=== PATIENT | male | born 1990 | race Hispanic/Latino ===

== ENCOUNTER 2018-01-06 05:59 | Day surgery (SDC) | payer BC ==
[2018-01-02 13:13] VITALS: BMI 27.9
[2018-01-06] MEDS ORDERED: Lactated Ringer's 1,000 ML IV ONE ×2 (06:47→13:45)
[2018-01-06 07:06] LABS: HEMOGLOBIN 14.5 g/dL (12.0-18.0); MEAN CELL VOLUME 90.2 fl (80.0-94.0); MEAN CORPUSCULAR HEMOGLOBIN 30.2 pg (27.0-31.0); MEAN CORPUSCULAR HGB CONC 33.5 g/dL (33.0-37.0); RBC 4.82 Mil/uL (4.40-5.90); RED CELL DISTRIBUTION WIDTH 12.4 % (11.5-14.5); WHITE BLOOD COUNT 5.7 K/uL (4.8-10.8)
[2018-01-06] MEDS ORDERED: Lidocaine 1% Inj (20ml) ONE (07:44)
[2018-01-06] MEDS ORDERED: MethylPREDNISolone Depo 40 mg/ml Inj ONE (07:44)
[2018-01-06] MEDS ORDERED: EPINEPHrine 1 mg/ml (1:1000) Inj ONE ×6 (07:44→11:23)
[2018-01-06] MEDS ORDERED: Bacitracin Ointment 30 GM TUBE ONE (07:45)
[2018-01-06] MEDS ORDERED: Bupivacaine 0.5% Inj(30mL) ONE (07:45)
[2018-01-06] MEDS ORDERED: Rocuronium 10 mg/ml (5 ml) ONE (08:58)
[2018-01-06] MEDS ORDERED: Propofol 10 mg/ml Inj (20 ML) ONE (08:58)
[2018-01-06] MEDS ORDERED: Midazolam 2 MG/2 ML VIAL ONE (08:58)
[2018-01-06] MEDS ORDERED: Succinylcholine 200 mg/10 ml Inj IV ONE (08:58)
[2018-01-06] MEDS ORDERED: Lidocaine 1% 5ml Abboject IV ONE (08:59)
[2018-01-06] MEDS ORDERED: Ropivacaine 0.5% 30ML IV ONE (09:05)
[2018-01-06] MEDS ORDERED: EPINEPHrine 1 mg/ml (1:1000) Inj IV ONE (10:45)
[2018-01-06] MEDS ORDERED: Lidocaine 1% Inj (20ml) IJ ONE (10:45)
--- NOTE | 2018-01-06 12:46 | PCM.ANESB3 ---
Femoral Nerve Block - Femoral Nerve Block Date of Procedure: 01/06/18 Anesthesiologist: Luke Pre-Procedure Diagnosis: Left ACL tear Post-Procedure Diagnosis: Same Procedure Performed: Femoral Nerve Block Left - Procedure Femoral Nerve Block: The procedure was explained to the patient that it is for the post-operative pain management. Consent was obtained after a thorough discussion with the patient regarding the benefits and possible complications of local anesthetic block of the femoral nerve at the inguinal crease area. The patient was brought to the operating room and standard monitors were applied. Time-out was held with the circulating nurse to confirm the correct surgery and the appropriate block. After applying oxygen by nasal cannula and administering IV Sedation, patient was placed in supine position with fully extended lower extremities and the ___left groin exposed. The femoral artery was then carefully palpated. The ultrasound transducer was then applied to this area in the transverse plane and the femoral nerve was visualized lateral to the femoral artery and underneath the fascia iliaca. After thorough identification, the inguinal crease area was prepped with Betadine solution three times and 1 % Lidocaine was injected subcutaneously for topical anesthesia. At this point, a #22 gauge Stimuplex 2-inch needle was inserted immediately lateral to the femoral artery pulse at the inguinal crease and advanced perpendicularly. The needle was inserted to the ultrasound transducer in-plane towards the femoral nerve in a jvvjyyl-oc-frqguy direction. Needle advancement was performed carefully under direct ultrasound visualization. Nerve stimulator was used and twitch of the quadriceps muscle was obtained at current of __0.4___ MA. After negative aspiration, ___20__cc of __.5___% ____ropivacaine ____was injected. Under ultrasound guidance the local anesthetics were observed spreading below fascia iliaca and around the femoral nerve. The needle was removed intact and sterile dressing was applied. The patient had stable vital signs, was conscious and in no apparent distress. The patient tolerated the femoral nerve block well with stable vital signs and was prepared for subsequent surgery.
--- NOTE | 2018-01-06 12:48 | PCM.ANESB2 ---
Popliteal Nerve Block - Popliteal Nerve Block Date of Procedure: 01/06/18 Anesthesiologist: Luke Pre-Procedure Diagnosis: Left ACL tear Post-Procedure Diagnosis: Same Procedure Performed: Popliteal Nerve Block Left - Procedure Popliteal Nerve Block: This procedure was explained to the patient that it is for post-operative pain management. Consent was obtained after a thorough discussion with the patient regarding the benefits and possible complications of local anesthetic block of the sciatic nerve at the popliteal level. The patient was brought to the operating room and standard monitors are applied. Time-out was held with the circulating nurse to confirm the correct surgery and the appropriate block. After applying oxygen by nasal cannula and administering IV Sedation, patient's operative leg was gently raised and supported and the groove in between the biceps femoris and vastus lateralis muscles was carefully palpated. The skin approximately 8cm above the popliteal crease was then marked. The ultrasound transducer was then applied to the posterior thigh approximately 8cm above the popliteal crease in the transverse plane and the sciatic nerve before its division was visualized lateral to the popliteal artery and in between the bicep femoris and semimembranosus/semitendinosus muscles. After identification, the lateral portion of the thigh was prepped with Betadine solution three times and Lidocaine 1% was injected subcutaneously for topical anesthesia. At this point, a # 21 gauge Stimuplex insulated 4 inch needle was inserted into pre-marked area and advanced in a perpendicular direction. The needle was inserted above the ultrasound transducer in-plane towards the sciatic nerve in a rqpvqbr-mi-wacfye direction. Needle advancement was performed carefully under direct ultrasound visualization. Nerve stimulator was used and dorsiflexion of the __left___ foot was elicited at a current of __0.4___ MA. After repeated negative aspiration, __10___cc of __.5___ % ____ropivacaine was injected. Under ultrasound guidance the local anesthetics were observed surrounding sciatic nerve . The needle was removed intact and sterile dressing was applied. The patient tolerated the popliteal nerve block well with stable vital signs and was subsequently prepared for the surgery.
[2018-01-06] MEDS ORDERED: Bacitracin OINT 15GM TOP ONE (13:35)
[2018-01-06] MEDS ORDERED: HYDROmorphone 0.5 mg/0.5 ml ISec IVP PRN (13:48)
[2018-01-06] MEDS ORDERED: Lactated Ringer's 1,000 ML IV SCH (14:00)
--- NOTE | 2018-01-06 15:10 | PCM.SURG1 ---
Surgeon's Initial Post Op Note - Surgeon's Notes Surgeon: [employer] Plant Engineer: LIDYA Mendoza Type of Anesthesia: General Endo (-), Spinal, Block Regional Anesthesia Administered By: DR Butler/DR Horne Pre-Operative Diagnosis: post traumatic derangemewnt L Knee Operative Findings: Tear ACL- complete. High grade tear MCL. tear lateral meniscus. tricompartmental synovitis Post-Operative Diagnosis: as above Operation Performed: arthroscopic ACL recostruction with semitendonosis tendon. athroscopic MCL repair/reinforcemnt with internal brace technology. arthroscopic partial lateral meniscectomy. arthroscopic partial tricompartmental synovectomy. applx knee immobilizer. posiitoning of fluoro/ interpretation of video images Specimen/Specimens Removed: cartilage/synvoium/ligament Estimated Blood Loss: EBL {In ML}: 15 Blood Products Given: N/A Drains Used: No Drains Post-Op Condition: Good Date of Surgery/Procedure: 01/06/18 Time of Surgery/Procedure: 10:45 (time in room/anaestrhesdia induction time 9:40 )
[2018-01-06 16:02] VITALS: RESP 18; O2SAT 99
[2018-01-06 16:37] VITALS: BP 128/80; PULSE 84; TEMP 98.3
--- NOTE | 2018-01-06 16:50 | RAD ---
PROCEDURE: Left Knee Radiographs. HISTORY: Status post complex knee reconstruction COMPARISON: None. FINDINGS: BONES: No visible fractures. JOINTS: Normal. No osteoarthritis. JOINT EFFUSION: Air and fluid within the suprapatellar bursa. OTHER FINDINGS: None. IMPRESSION: Satisfactory postoperative status.
--- NOTE | 2018-01-07 11:16 | OP ---
PROCEDURE DATE: 01/06/2018 PREOPERATIVE DIAGNOSES: 1. Post-traumatic derangement of the left knee. 2. Complete tear of the anterior cruciate ligament. 3. High-grade partial tear, medial collateral ligament. 4. Tear, lateral meniscus. 5. Tricompartmental synovitis. POSTOPERATIVE DIAGNOSES: 1. Post-traumatic derangement of the left knee. 2. Complete tear of the anterior cruciate ligament. 3. High-grade partial tear, medial collateral ligament. 4. Tear, lateral meniscus. 5. Tricompartmental synovitis. OPERATION PERFORMED: 1. Arthroscopic ACL reconstruction with semitendinosus allograft tendon. 2. Arthroscopic MCL repair/reinforcement with internal brace technology. 3. Arthroscopic partial lateral meniscectomy. 4. Arthroscopic partial tricompartmental synovectomy. 5. Positioning of fluoroscope interpretation of video images. 6. Application of knee immobilizer. SURGEON: Robert Cueva MD DERMATOLOGY NURSE: Gabi Lopez, certified registered nursing first line supervisor. SPECIMENS REMOVED: Cartilage, synovium, and ligament. ESTIMATED BLOOD LOSS: 15-20 mL. BLOOD PRODUCTS GIVEN: None. DRAINS: No drains used. POSTOPERATIVE CONDITION: Good. TIME OF SURGERY: 10:45 incision time. Time in the room 9:40. 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 The patient sustained a basketball injury approximately a week to 10 days ago. The patient presented to my office, had a bloody aspirate and a positive MRI for ACL injury and MCL injury. Pros, cons, risks, and benefits of surgical approach were discussed. The possibility of mechanical failure, infection, thromboembolic disease, stiffness secondary or tertiary surgery was discussed. The patient can no longer withstand the discomfort, he is aware of the options, and wishes the arthroscopic reconstruction. OPERATIVE PROCEDURE: After having obtained informed consent in the above fashion, after having identified side, site, and procedure and critical pause/time-out after the satisfactory induction of the anesthetic, the patient identified as Alton Flowers underwent general endotracheal and regional block anesthesia by Dr. Butler and Dr. Horne. After having obtained informed consent, after having identified side, site, and procedure and a critical pause/time-out, after the satisfactory induction of the anesthetic, the left lower extremity was prepped and free draped in usual fashion for lower extremity surgery. The tourniquet had been applied, but was not inflated. The lateral post was employed for ACL reconstructive surgery. After exsanguinating the limb using a 6-inch Esmarch bandage, tourniquet, which had been applied, was inflated to 350 mmHg. The joint was insufflated with 10 mL 1% lidocaine without epinephrine. Using #11 blade followed by spreading, followed by introduction of blunt trocar, the arthroscope was introduced. There was an egress of fluid and the arthroscope was introduced. There was a great deal of synovitis and there was a complete rupture of the anterior cruciate ligament. Triangulation was accomplished using 18-gauge spinal needle from an anteromedial portal, followed by #11 blade followed by spreading with the arthroscope, now transferred anteromedially. Using the arthroscopic shaver 5.5 mm, a careful partial tricompartmental synovectomy was accomplished both to improve visualization and to ablate irritative tissue. Bleeding points controlled with the arthroscopic wand. The patient has a relatively A shape notch, so a notchplasty will be employed. Triangulation was accomplished using 18-gauge spinal needle followed by #11 blade followed by spreading. With the arthroscope anterolaterally, a careful partial tricompartmental synovectomy was completed both to improve visualization and to ablate irritative tissue. At this point in time, with the arthroscope anteromedially, the klaus was placed adriana-centrally and a notchplasty was accomplished to the deep posterior aspect of the medial wall of the lateral femoral condyle. Notchplasty having been accomplished, using a combination of the arthroscopic shaver and the [employer] wand, the entire anterior cruciate ligament stump was resected. The base was planed using the klaus and soft tissues were debrided using the arthroscopic wand. At this point in time, with the surgeon exerting a gentle valgus stress so as not to further injure the medial collateral ligament, there was found to be an intact medial meniscus. With the knee in [id number] position, there was found to be a tear at the inner free edge of the lateral meniscus. Using a combination of 3.4 mm [employer] suction punch and the arthroscopic wand, a partial lateral meniscectomy was accomplished. There was no evidence of peripheral, lateral, or medial meniscal separation. Partial tricompartmental synovectomy was again completed. At this point in time, the tibial aiming-guide was placed through a second anteromedial portal, which was inferior at the joint line using #11 blade followed by spreading at the junction of the patellar ligament with the lateral compartment. Using #11 blade followed by spreading, the tibial aiming guide was placed to 55 degrees, the skin was marked on the proximal medial tibia. An incision was accomplished approximately 1-1/2 inches in extent. Skin incision was carried down through the skin, subcutaneous tissue. The bare area was identified, and at this point in time, the tibial aiming guide was placed with the knee in approximately 95 degrees of flexion. The guide pin/drill was introduced through the tibia and into the femur. Reaming was then accomplished to approximately 35 mm on the femoral side and completely through the tibial side. The reamer was removed using the arthroscopic shaver further, and debris from the reaming and the bony margins of the tunnels were debrided. The arthroscope was placed in the tunnels and the tunnels were found to be intact with no posterior wall breakout. This having been accomplished, the wound was thoroughly irrigated. The semitendinosus graft was prepared, it was whipstitched and applied to the exoskeleton introduction device. The introduction device was placed through the tibia into the femur. It was impacted to approximately 35 mm. At this point in time, the internal prosthetic anchor was deployed by popping the so-called caulking gun and the fixation on the femoral side was found to be excellent. The allograft having been placed at the proximal medial tibia, tension was applied, and at this point in time, the fixation was found to be excellent on the femoral side. The position of the graft was found to be excellent. Guidewire was placed in the tibia. Sequential dilatation was carried out to 11 mm and the 11 mm prosthetic anchors/appliance was placed. The caulking gun was applied. The caulking gun was introduced and the anchor expands. The fixation was found to be excellent on the tibial side. The remainder of the graft was excised using #15 blade. This having been accomplished, the wound was thoroughly irrigated and the plane was carried out subcu from the area of the tibial insertion to the medial aspect of the femur. Under the surgeon's direction, the fluoroscope was positioned, video images were generated, therapeutic decisions were made therefrom for the repair. An incision was accomplished superficial to the medial epicondyle longitudinally using #10 blade followed by spreading introduction of the guide pin was accomplished, 4.8 mm posterior and 3.2 mm proximal to the medial epicondyle. There was found to be a small rent proximally and this was repaired using the FiberWire. Reaming was accomplished to 20 mm over the guide pin and the swivel lock anchor was loaded with the fiber tape and this was introduced. Verification of position was offered on image intensification views. The remains of the FiberTape brought through the subcutaneous tunnel to the area of approximately 3 mm anterior to the tibial crest. In the region of the pes anserinus small incision was accomplished. The wire was introduced. Reaming was accomplished at 20 mm. The anchor was loaded with the tails of the fiber brace to complete the internal brace reinforcement of the collateral. There was found to be a partial tear of the collateral distally. The anchor was introduced. Fixation was found to be excellent. A freer was placed so as not to over tighten the medial side. This fibrous clipped with a free needle. The remains of the sutures were used to repair the partial grade tear of medial collateral, followed by #1 Vicryl, 0 Vicryl, and jaspreet for skin. The tourniquet had been deflated by the way. Hemostasis was controlled and closures in layers with interrupted Vicryl and japsreet. Prior to closure, the range of motion of the knee was excellent. There was found to be excellent anterior posterior stability and medial and lateral stability. Juan [employer] Pike compression dressing and knee immobilizers were applied. Postoperative x-rays showed acceptable position of the construct. Robert Cueva MD
--- NOTE | 2018-01-07 12:58 | RAD ---
PROCEDURE: Fluoroscopy up to 1 hr. HISTORY: LEFT KNEE COMPARISON: None TECHNIQUE: Standard protocol for this study/examination. FINDINGS: Total fluoroscopic time (continuous mode) utilized during the procedure: 18.0 seconds. IMPRESSION: Total exam DLP: (mGy) 1.37 Submitted images from the current procedure: 3.0. Less than 1 hr fluoroscopic time utilized during performance of the procedure.
== END 2018-01-06 16:40 | disposition home or self-care (01) ==
LOC: H.OPSURG 05:59 → MERGE 13:15 → H.OPSURG 16:40
PROVIDERS: ATTEND Orthopaedic Surgery
DX: S83.511A Sprain of anterior cruciate ligament of right knee, initial encounter (principal); X58.XXXA Exposure to other specified factors, initial encounter; M65.862 Other synovitis and tenosynovitis, left lower leg; M23.8X2 Other internal derangements of left knee; Y93.67 Activity, basketball; S83.519A Sprain of anterior cruciate ligament of unspecified knee, initial encounter
CPT/HCPCS: 29530; 29876; 29881; 36415; 73560; 85027; 88305; 97116; 97161; C1776; G8978; G8979; G8980; J0171; J0330; J0690; J2250; J2405; J2704; J3010; J7030; J7120